=== PATIENT | female | born 1960 | race Caucasian/White ===

== ENCOUNTER → 2021-02-25 | Day surgery (SDC) | payer OTHER ==
[~2021-02-25] MED LIST: CALCIUM +D & M1 EACH PO; CELEBREX200 MG PO; CENTRUM WOMEN1 EACH PO; GABAPENTIN600 MG PO; LAMICTAL150 MG PO; LITHIUM300 MG PO; PERCOCET 5-3251 EACH PO; PERCOCET 7.5/321 TAB PO; TURMERIC500 M1 PO; VALSARTAN-HCTZ1 EAC4 PO; WELLBUTRIN XL300 MG PO; ZOFRAN8 MG PO
[2021-02-25 07:30] LABS: HCT 36.9 % (37.0-47.0); HGB 12.2 g/dl (12.5-16.0); MCH 28.3 pg (25.0-31.0); MCHC 33.1 g/dL (32.0-36.0); MCV 85.6 fL (78.0-100.0); RBC 4.31 M/uL (4.20-5.40); RDW 14.3 % (11.5-14.0)
[2021-02-25 07:43] LABS: BUN/CREAT RATIO (CALC) 22.3 RATIO; CREATININE 0.94 mg/dL (0.51-0.95); POTASSIUM 3.7 mmol/L (3.5-5.1)
== END | disposition home or self-care (01) ==
LOC: FAS 06:25
PROVIDERS: Legal Medicine
DX: M75.121 Complete rotator cuff tear or rupture of right shoulder, not specified as traumatic (principal); M13.811 Other specified arthritis, right shoulder; I10 Essential (primary) hypertension; G47.30 Sleep apnea, unspecified; Z20.822 Contact with and (suspected) exposure to COVID-19; Z88.5 Allergy status to narcotic agent; Z90.49 Acquired absence of other specified parts of digestive tract; Z79.899 Other long term (current) drug therapy
CPT/HCPCS: 36415; 80048; C1713; J0171; J0690; J1100; J1885; J2250; J2405; J2704; J2795; J3010; J7120

== ENCOUNTER 2021-09-30 08:19 | Day surgery (SDC) | payer OTHER ==
[~2021-09-30] VITALS: Ht 170 cm; Wt 87.0 kg
[~2021-09-30 08:19] MED LIST changes: -CELEBREX200 MG PO; +LAMOTRIGINE150 MG PO; +MELATONIN5 M2 PO
--- NOTE | 2021-09-30 13:57 | NUR ---
TC TO [facility] AT [facility] TO HOME @ [phone]. SHE ADVISED THAT PT CAN BE SEEN ON 10/04/21. FAXED [facility], CONSULT. WILL FAX ORDER ON THURSDAY.
--- NOTE | 2021-09-30 16:03 | NUR ---
PT. HAD A LDATHR THIS DATE. SHE WILL D/C HOME. HER SISTER WILL BE STAYING WITH HER. PT. HAS A ROLLING WALKER. PT. REQUESTED [facility]. [facility] HAS BEEN NOTIFIED AND WILL BEGIN SERVICES ON 10/04/21. THE THERAPIST WILL CONTACT THE PT WITH THE TIME OF ARRIVAL. PT. SIGNED CHOICE FORM.
[2021-10-01 06:47] LABS: BASOPHIL 0.1 % (0-2); EOSINOPHIL 1.6 % (0-5); HCT 31.4 % (37.0-47.0); LYMPHOCYTE 23.2 % (15-48); MCH 27.9 pg (25.0-31.0); MCHC 31.8 g/dL (32.0-36.0); MCV 87.5 fL (78.0-100.0); MONOCYTE 6.6 % (0-12); MPV 10.3 fL (6.0-9.5); NEUTROPHIL 68.4 % (41-80); NRBC 0; PLT 220 K/uL (150-400); RBC 3.59 M/uL (4.20-5.40); RDW 15.4 % (11.5-14.0); WBC 6.7 K/uL (4.0-10.5)
[2021-10-01 07:28] LABS: BUN/CREAT RATIO (CALC) 18.8 RATIO; CREATININE 0.96 mg/dL (0.51-0.95); POTASSIUM 3.7 mmol/L (3.5-5.1)
[2021-10-01] MEDS ORDERED: FEOSOL325 MG PO (10:44)
[2021-10-01] MEDS ORDERED: XARELTO10 MG PO (10:45)
[2021-10-01] MEDS ORDERED: OXYCODONE-ACET1 EAC1 PO (10:46)
[2021-10-01] MEDS ORDERED: CELEBREX200 MG PO (11:03)
== END 2021-10-01 11:42 | disposition home or self-care (01) ==
LOC: FMS 08:19 → FAS 08:19 → FMS 11:55 → FAS 10-01 11:42
PROVIDERS: Legal Medicine
DX: M16.12 Unilateral primary osteoarthritis, left hip (principal); M25.512 Pain in left shoulder; Z88.5 Allergy status to narcotic agent; S46.012D Strain of muscle(s) and tendon(s) of the rotator cuff of left shoulder, subsequent encounter; I10 Essential (primary) hypertension; G89.29 Other chronic pain; M54.9 Dorsalgia, unspecified; F43.10 Post-traumatic stress disorder, unspecified; F41.9 Anxiety disorder, unspecified
CPT/HCPCS: 36415; 73501; 76000; 80048; 80178; 85025; 94762; 97162; 97166; 97530-GP; 97535; C1776; J0171; J0697; J1885; J2250; J2405; J2704; J2795; J3010; J3360; J7120